=== PATIENT | male | born 1980 | race Caucasian/White ===

== ENCOUNTER 2020-03-25 17:14 | Emergency (ER) | payer SELFPAY ==
[~2020-03-25] VITALS: Ht 177.8 cm; Wt 68.0 kg
[2020-03-25 17:19] VITALS: BP 130/88
[2020-03-25] MEDS ORDERED: IBUPROFEN 800MG TABLET PO ONE (20:30)
[2020-03-25] MEDS ORDERED: ACETAMINOPHEN 500MG TABLET PO ONE (20:30)
[2020-03-25] MEDS ORDERED: METHYLPREDNISOLONE SOD SUCC 125 MG/2 ML VIAL IM ONE (20:45)
== END 2020-03-25 22:28 | disposition home or self-care (01) ==
LOC: ER 17:14
DX: S80.269A Insect bite (nonvenomous), unspecified knee, initial encounter (principal); M25.569 Pain in unspecified knee; W57.XXXA Bitten or stung by nonvenomous insect and other nonvenomous arthropods, initial encounter; Y93.89 Activity, other specified; Y92.89 Other specified places as the place of occurrence of the external cause; Y99.8 Other external cause status
CPT/HCPCS: 96372; 99283; J2930; Z7610